=== PATIENT | male | born 1980 | race Caucasian/White ===

== ENCOUNTER 2019-02-12 20:41 | Emergency (ER) | payer MEDICAID ==
[~2019-02-12] VITALS: Ht 170.2 cm; Wt 83.0 kg
--- NOTE | 2019-02-12 21:29 | NUR ---
pt stated on Feb 10 around 1400, he gave himself an once a month injection of his migraine meds. pt stated he started this new Rx in January with no problems. however, this month his thigh has a reddened area on middle of rt thigh irregular in shape, marked with pen. hot to the touch, a couple of shades of red. MD at bedside. pt covered with a blanket, on the monitor, call light within reach. and dressed in a gown.
[2019-02-12] MEDS ORDERED: CEFTRIAXONE 1,000 MG ONE (21:55)
[2019-02-12] MEDS ORDERED: CEFTRIAXONE 1,000 MG IM ONE (22:00)
--- NOTE | 2019-02-12 22:09 | NUR ---
pt given IM Rx abx, covered with a bandaid. pt getting dressed for DC.
--- NOTE | 2019-02-12 22:10 | NUR ---
report given to [facility] Jolly
--- NOTE | 2019-02-12 22:41 | NUR ---
GIVEN DC INSTRUCTION PT UNDERSTOOD PT UP AMBUALTED TO CHECK OUT
[2019-02-12 22:42] VITALS: BP 141/101
== END 2019-02-12 22:44 | disposition home or self-care (01) ==
LOC: ED 22:30
DX: L03.115 Cellulitis of right lower limb (principal); F32.9 Major depressive disorder, single episode, unspecified; F41.9 Anxiety disorder, unspecified
CPT/HCPCS: 96372; 99283; J0696

== ENCOUNTER 2019-02-17 16:19 | Emergency (ER) | payer MEDICAID ==
[~2019-02-17] VITALS: Ht 170.2 cm; Wt 83.7 kg
[2019-02-17 18:58] VITALS: BP 124/68
== END 2019-02-17 19:02 | disposition home or self-care (01) ==
LOC: ED 18:45
DX: L03.115 Cellulitis of right lower limb (principal); F41.9 Anxiety disorder, unspecified; F32.9 Major depressive disorder, single episode, unspecified
CPT/HCPCS: 36415; 80048; 85025; 99283

== ENCOUNTER 2020-09-11 13:35 | Emergency (ER) | payer MEDICAID ==
[~2020-09-11] VITALS: Ht 170.2 cm; Wt 93.0 kg
--- NOTE | 2020-09-11 14:07 | NUR ---
PT BROUGHT BACK FROM TRIAGE. PER PT, LAST NIGHT HE WAS FEELING SOME PAIN IN HIS RIGHT KNEE. HE WOKE UP THIS MORNING WITH REDNESS AND SWELLING OVER HIS RIGHT KNEE AND IS TOO PAINFUL TO WALK. PT DENIES ANY RECENT TRAUMA TO KNEE. PT DENIES ANY FEVER, CP OR COUGH.
[2020-09-11] MEDS ORDERED: CEFTRIAXONE 1,000 MG ONE (14:56)
[2020-09-11] MEDS ORDERED: KETOROLAC 30 MG/1 ML ONE (14:57)
[2020-09-11] MEDS ORDERED: KETOROLAC 30 MG/1 ML IM ONE (15:00)
[2020-09-11] MEDS ORDERED: CEFTRIAXONE 1,000 MG IM ONE (15:00)
--- NOTE | 2020-09-11 15:03 | NUR ---
PT TO IMAGING
[2020-09-11 15:09] LABS: BASOPHILS % (AUTO) 1 % (0-1); EOSINOPHILS % (AUTO) 1 % (1-7); LYMPHOCYTES % (AUTO) 11 % (22-44); MEAN CORPUSCULAR HEMOGLOBIN 30.3 pg (27.5-34.5); MEAN CORPUSCULAR HGB CONC 34.5 g/dL (33.2-36.2); MEAN PLATELET VOLUME 7.1 fL (7.4-10.4); MONOCYTES % (AUTO) 7 % (2-9); NEUTROPHILS % (AUTO) 80 % (42-75); PLATELET COUNT 354 x10^3/uL (130-400); RED BLOOD COUNT 5.03 x10^6/uL (4.38-5.82)
[2020-09-11 15:20] LABS: ALBUMIN 3.7 g/dL (3.4-5.0); ANION GAP 8 mmol/L (5-15); CALCIUM 8.9 mg/dL (8.5-10.1); CHLORIDE 104 mmol/L (98-107); CREATININE 1.42 mg/dL (0.7-1.3)
--- NOTE | 2020-09-11 15:24 | NUR ---
ultra sount at bedside
[2020-09-11 15:35] VITALS: BP 114/64
[2020-09-11 16:01] LABS: MD SCAN
[2020-09-11] MEDS ORDERED: SULFAMETH./TRIMETHOPRIM DS 800MG/160MG TABLET PO ONE (16:30)
[2020-09-11] MEDS ORDERED: SULFAMETH./TRIMETHOPRIM DS 800MG/160MG TABLET ONE (16:36)
--- NOTE | 2020-09-11 16:54 | NUR ---
discharge instructions reviewed with pt. all questions answered at this time
== END 2020-09-11 16:56 | disposition home or self-care (01) ==
LOC: ED 16:30
DX: L03.115 Cellulitis of right lower limb (principal); M25.561 Pain in right knee; M79.89 Other specified soft tissue disorders
CPT/HCPCS: 36415; 73564; 80048; 82040; 85025; 93971; 96372; 99285; J0696; J1885